=== PATIENT | female | born 1990 | race Caucasian/White ===

== ENCOUNTER 2016-03-30 14:12 | Emergency (ER) | payer OTHER ==
[2016-03-30 14:22] VITALS: TEMP 98.2; BMI 23.1
--- NOTE | 2016-03-30 15:28 | PDOC ---
Attending Attestation - Resident Resident Name: Reyes Clemente - ED Attending Attestation I have performed the following: I have examined & evaluated the patient, The case was reviewed & discussed with the resident, I agree w/resident's findings & plan - HPI HPI: 03/30/16 17:02 25y F presents with SOB/HERNÁNDEZ for several weeks associated with mild lightheadedness. Pt states it feels improved when she slows down and sits down or slows down when ambulating, no associated chets pain, hemoptysis, leg swelling, fever/chills, cough/congestion, wheezing, hx of divt/pe, smoking. Pts exam is unremarakble. Pt denies these sypmtoms with her prior even in late stages of . consideration for PE. pts labs reviewed no signs of anemia pt awaiting ekg and CTA 03/30/16 18:00 negative CTA for PE will dc the pt to fu with PMD return precautions were discussed - Physicial Exam PE: 03/31/16 09:49 see above - Medical Decision Making 03/31/16 09:49 see above
[2016-03-30] MEDS ORDERED: SODIUM CHLORIDE 1,000 ML IV STA (15:33)
--- NOTE | 2016-03-30 15:38 | PDOC ---
History of Present Illness - General Chief Complaint: Shortness of Breath Stated Complaint: 17 WKS , SOB, DIZZINESS Time Seen by Provider: 03/30/16 15:13 History Source: Patient Exam Limitations: No Limitations - History of Present Illness Initial Comments: 03/30/16 15:33 Patient is a 25 year old (1 miscarriage, 1 FT VD) female with PMH of bacterial colitis who presents to ED with SOB/dizziness. Patient states she is 19 weeks (according to Ultrasound dating 2 weeks ago by her OB) and has been having shortness of breath & subsequent lightheadedness after exertion for the last 4-5 days. It has been increasing in intensity and is only alleviated by sitting down & resting. She states that she feels a throbbing sensation in her lower abdomen during these episodes. She describes it as " feels like my baby's heart is racing". She reports constipation. Denies fever, chills, nausea, vomiting, diarrhea, vaginal spotting or chest pain. She has not been on a long trip recently. Denies any history of OCP use. Denies family history of clotting or spontaneous abortions. Past History - Travel Traveled outside of the country in the last 30 days: No Close contact w/someone who was outside of country & ill: No - Past Medical History Allergies/Adverse Reactions: Allergies Allergy/AdvReac Type Severity Reaction Status Date / Time No Known Allergies Allergy Verified 03/30/16 14:22 Home Medications: Ambulatory Orders Iron 0 mg PO ASDIR 11/04/13 Vit #108/Iron/FA [ One Tablet] 1 each PO ASDIR 11/04/13 Levofloxacin [Levaquin -] 500 mg PO DAILY #7 tablet 11/06/13 Metronidazole [Flagyl -] 500 mg PO TID #15 tablet 11/06/13 Asthma: No Cancer: No Cardiac Disorders: No Diabetes: No GI Disorders: Yes (bacterial colitis) HTN: No Suicide Attempt (Hx): No Seizures: No Thyroid Disease: No - Family Disease History Family Disease History: Diabetes: Mother - Reproductive History LMP comment: LMP 12/14 Is Patient Now?: Yes (#): 3 (1 MSICARRIAGE AT 16 WEEKS, 1 FULLT ERM VAGINAL DELIVERY) Para: 1 - Immunization History Immunization Up to Date: Yes - Psycho/Social/Smoking Cessation Hx Anxiety: No Suicidal Ideation: No Smoking Status: No Smoking History: Never smoked Have you smoked in the past 12 months: No Number of Cigarettes Smoked Daily: 0 Hx Alcohol Use: No Drug/Substance Use Hx: No Substance Use Type: None Hx Substance Use Treatment: No Review of Systems - Review of Systems Able to Perform ROS?: Yes Is the patient limited Sudanese proficient: No Constitutional: Yes: Diaphoresis. No: Chills, Fever, Night Sweats HEENTM: No: Blurred Vision, Nose Congestion, Throat Swelling, Difficulty Swallowing Respiratory: Yes: SOB with Exertion. No: Wheezing, Productive cough, Hemoptysis Cardiac (ROS): Yes: Lightheadedness. No: Chest Pain, Edema, Irregular Heart Rate, Syncope ABD/GI: Yes: Constipated. No: Diarrhea, Nausea, Vomiting, Tarry Stools : No: Burning, Dysuria Neurological: No: Headache, Numbness, Paresthesia, Tingling, Tremors All Other Systems: Reviewed and Negative *Physical Exam - Vital Signs Last Vital Signs Temp Pulse Resp BP Pulse Ox 98.2 F 95 H 16 118/68 99 03/30/16 14:18 03/30/16 14:18 03/30/16 14:18 03/30/16 14:18 03/30/16 14:18 - Physical Exam General Appearance: Yes: Nourished, Appropriately Dressed HEENT: positive: EOMI, CHRISTINA, Normal ENT Inspection, Pharynx Normal Neck: positive: Trachea midline, Normal Thyroid, Supple Respiratory/Chest: positive: Lungs Clear, Normal Breath Sounds Cardiovascular: positive: Regular Rhythm, S1, S2, Tachycardia Gastrointestinal/Abdominal: positive: Normal Bowel Sounds, Flat, Soft Musculoskeletal: positive: Normal Inspection Extremity: positive: Normal Inspection, Normal Range of Motion Integumentary: positive: Normal Color, Dry, Warm Neurologic: positive: card cutter helper II-XII NML intact, Fully Oriented, Alert, Normal Mood/ Affect, Motor Strength / ED Treatment Course - LABORATORY CBC & Chemistry Diagram: 03/30/16 15:48 03/30/16 15:48 - RADIOLOGY Radiology Studies Ordered: Category Date Time Status US(SINGLE) [US] Stat Ultrasound 03/30/16 15:27 Ordered Medical Decision Making - Medical Decision Making 03/30/16 15:39 Pelvic US ordered. Ordered EKG, CBC, CMP, UA. 1liter IVF ordered. 03/30/16 17:12 Need to rule out PE. Explained risks of radiation exposure to patients , and patient acknowledges understanding. She consents to CTA imaging. Discussed case with radiology. Plan is to proceed with CTA while ensuring lowest radiation exposure possible to patient. Ultrasound shows 17 weeks 6 days single live IUP. 03/30/16 19:01 CTA read as negative for PE or any other acute pathology. Patient instructed to followup with OBGYN immediately, ideally tomorrow. Instructed to return if symptoms worsen or new symptoms develop. *DC/Admit/Observation/Transfer Diagnosis at time of Disposition: Shortness of breath on exertion - Discharge Dispostion Disposition: HOME Condition at time of disposition: Stable Admit: No - Referrals Referrals: Kia Modi MD [Primary Care Provider] - - Patient Instructions Additional Instructions: Try to relax and not exert yourself too much over the next few days. Call your doctor LABOR TRAINER TOMORROW to schedule an appointment within 2 days for a checkup. If chest pain, shortness of breath or new problems start, return to emergency room IMMEDIATELY.
[2016-03-30 16:10] LABS: BASOPHIL 1.3 % (0-2.0); EOSINOPHIL 0.2 % (0-4.5); MCH 29.2 pg (25.7-33.7); MCHC 34.5 g/dl (32.0-36.0); MEAN CELL VOLUME 84.8 fl (80-96); MEAN PLT VOLUME 8.6 fl (7.5-11.1); NEUTROPHILS 70.6 % (42.8-82.8); PLATELET COUNT 210 K/MM3 (134-434); RDW 14.5 % (11.6-15.6); WHITE BLOOD COUNT 8.5 K/mm3 (4.0-10.0)
[2016-03-30 16:19] LABS: URINE APPEARANCE SLCLOUDY; URINE BILIRUBIN NEGATIVE (NEGATIVE); URINE BLOOD NEGATIVE (NEGATIVE); URINE COLOR YELLOW; URINE GLUCOSE (UA) NEGATIVE (NEGATIVE); URINE KETONE NEGATIVE (NEGATIVE); URINE NITRITE NEGATIVE (NEGATIVE); URINE PROTEIN NEGATIVE (NEGATIVE); URINE UROBILINOGEN NEGATIVE E.U./dl (0.2-1.0)
[2016-03-30 16:25] LABS: ALBUMIN 3.4 g/dl (3.4-5.0); ALK PHOS 59 U/L (45-117); ANION GAP 11 (8-16); BILIRUBIN,TOTAL 0.3 mg/dL (0.2-1.0); CALCIUM 9.1 mg/dL (8.5-10.1); CO2 22 mmol/L (21-32); CREATININE 0.5 mg/dL (0.55-1.02); GLUCOSE,RANDOM 91 mg/dL (74-106); SGOT/AST 16 U/L (15-37); SGPT/ALT 23 U/L (12-78); TOT PROT 7.2 g/dl (6.4-8.2)
[2016-03-30 16:28] LABS: URINE LEUK ESTERASE 1+ (NEGATIVE)
[2016-03-30 16:52] LABS: URINE MUCUS RARE; URINE RBC 5 /hpf (0-3); URINE WBC 3 /hpf (3-5); YEAST RARE
[2016-03-30 19:30] VITALS: BP 112/76; PULSE 86
--- NOTE | 2016-03-31 17:48 | EKG ---
Test Reason : Blood Pressure : / mmHG Vent. Rate : 081 BPM Atrial Rate : 081 BPM P-R Int : 132 ms QRS Dur : 080 ms QT Int : 360 ms P-R-T Axes : 053 053 035 degrees QTc Int : 418 ms NORMAL SINUS RHYTHM SEPTAL INFARCT , AGE UNDETERMINED ABNORMAL ECG WHEN COMPARED WITH ECG OF 11-DEC-2011 07:40, SEPTAL INFARCT IS NOW PRESENT Confirmed by LUKASZ PARNELL MD ([id number]) on 03/31/2016 5:47:48 PM Referred By: Confirmed By:LUKASZ PARNELL MD
== END 2016-03-30 19:27 | disposition home or self-care (01) ==
LOC: JER 14:12
PROC: 3E0337Z Introduction of Electrolytic and Water Balance Substance into Peripheral Vein, Percutaneous Approach (ICD-10-PCS; principal; 2016-03-30)
DX: O99.89 Other specified diseases and conditions complicating pregnancy, childbirth and the puerperium (principal); R06.02 Shortness of breath; Z3A.18 18 weeks gestation of pregnancy
CPT/HCPCS: 36415; 71275-TC; 76801-TC; 80053; 81003; 81015; 85025; 93005; 93010; 96360; 99284-25

== ENCOUNTER 2016-08-27 01:15 | Inpatient (IN) | payer OTHER ==
[2016-08-27] MEDS: DEXTROSE 5%-LACTATED RINGERS 1,000 ML IV SCH (01:40)
[2016-08-27] MEDS ORDERED: PROMETHAZINE HCL 25 MG/1 ML VIAL IVPB ONE ×2 (01:55→04:00)
[2016-08-27] MEDS ORDERED: BUTORPHANOL TARTRATE 1 MG/ML VIAL IVPB ONE (01:55)
[2016-08-27 02:03] LABS: BASOPHIL 0.7 % (0-2.0); EOSINOPHIL 0.4 % (0-4.5); MCH 29.3 pg (25.7-33.7); MCHC 34.6 g/dl (32.0-36.0); MEAN CELL VOLUME 84.7 fl (80-96); MEAN PLT VOLUME 9.2 fl (7.5-11.1); NEUTROPHILS 69.5 % (42.8-82.8); PLATELET COUNT 212 K/MM3 (134-434); RDW 13.4 % (11.6-15.6)
[2016-08-27 02:34] VITALS: BMI 25.2
[2016-08-27 02:38] LABS: INR 1.03 (0.82-1.09); PROTHROMBIN TIME (PATIENT) 11.3 SEC (9.98-11.88)
[2016-08-27 02:40] LABS: ACTIVATED PTT 33.3 SECONDS (26.9-34.4)
[2016-08-27 02:44] LABS: ANION GAP 12 (8-16); CALCIUM 8.9 mg/dL (8.5-10.1); CO2 21 mmol/L (21-32); CREATININE 0.6 mg/dL (0.55-1.02); GLUCOSE,RANDOM 123 mg/dL (74-106)
[2016-08-27] MEDS: D5W-LR W/ 20 UNITS OXYTOCIN 1,000 ML IV SCH (04:15)
[2016-08-27] MEDS ORDERED: BENZOCAINE 20% 57 GM BOTTLE TP PRN (04:32)
[2016-08-27] MEDS ORDERED: WITCH HAZEL 50% (TUCKS) 40 PAD/JAR PAD TP PRN (04:32)
[2016-08-27] MEDS ORDERED: BENZOCAINE 28 GM HEMORRHOIDAL OINTMENT TP PRN (04:32)
[2016-08-27] MEDS ORDERED: BISACODYL 10 MG SUPP.RECT RC PRN (04:32)
[2016-08-27] MEDS ORDERED: METHYLERGONOVINE MALEATE 0.2 MG/1 ML AMP IM PRN (04:32)
[2016-08-27] MEDS ORDERED: MEPERIDINE HCL CARPU-JECT 50 MG/1 ML DISP.SYRIN IM ONE (04:33)
--- NOTE | 2016-08-27 04:39 | HP ---
Past Medical History - Admission Chief Complaint: Labor pain History of Present Illness: 25 yo @ 39 weeks gestation, EDC 09/02/16, admitted for Labor pain. Upon admission she was 5 cm dilated with intact membrane. History Source: Patient Limitations to Obtaining History: No Limitations - Past Medical History ...: 3 ...Para: 1 ...Term: 1 ...Spon : 1 ...LMP: 12/18/15 ... Weeks Gestation by Dates: 36.1 ...EDC by Dates: 09/22/16 ...EDC by Sono: 09/03/16 - Past Surgical History Past Surgical History: Yes: None Hx Myomectomy: No Hx Transabdominal Cerclage: No - Smoking History Smoking history: Never smoked Have you smoked in the past 12 months: No Aproximately how many cigarettes per day: 0 - Alcohol/Substance Use Hx Alcohol Use: No History of Substance Use: reports: None - Social History Usual Living Arrangement: Yes: With Spouse History of Recent Travel: No Home Medications - Allergies Allergies/Adverse Reactions: Allergies Allergy/AdvReac Type Severity Reaction Status Date / Time No Known Allergies Allergy Verified 06/26/16 14:35 - Home Medications Home Medications: Ambulatory Orders Iron 0 mg PO WEEKLY 11/04/13 Vit #108/Iron/FA [ One Tablet] 1 each PO DAILY 11/04/13 Family Disease History - Family Disease History Family History: Unremarkable Review of Systems - Review of Systems Constitutional: reports: No Symptoms Eyes: reports: No Symptoms HENT: reports: No Symptoms Neck: reports: No Symptoms Cardiovascular: reports: No Symptoms Respiratory: reports: No Symptoms Gastrointestinal: reports: No Symptoms Genitourinary: reports: Pain Breasts: reports: No Symptoms Reported Musculoskeletal: reports: No Symptoms Integumentary: reports: No Symptoms Neurological: reports: No Symptoms Endocrine: reports: No Symptoms Hematology/Lymphatic: reports: No Symptoms Psychiatric: reports: No Symptoms Pain Intensity: 10 Physical Exam - Maternity Vital Signs: Vital Signs Temperature 98.2 F 08/27/16 03:00 Pulse Rate 74 08/27/16 03:00 Respiratory Rate 20 08/27/16 03:00 Blood Pressure 137/76 08/27/16 03:00 O2 Sat by Pulse Oximetry (%) Constitutional: Yes: Well Nourished Eyes: Yes: Conjunctiva Clear HENT: Yes: Atraumatic, Normocephalic Neck: Yes: Supple, Trachea Midline Cardiovascular: Yes: Regular Rate and Rhythm Lungs: Clear to auscultation - Abdominal Exam/OB Number of Fetuses: Single Presentation: Vertex Contractions: Yes Regularity: Regular Intensity: Mod/Strong - Vaginal Exam/OB Dilatation (cm): 5 Effacement (%): 90 Amniotic Membrane Status: Intact Station: -2 - Physical Exam Integumentary: Yes: WNL ...Motor Strength: WNL Psychiatric: Yes: Alert, Oriented - Labs Lab Results: CBC, BMP 08/27/16 01:55 08/27/16 01:55 Problem List - Problems (1) Pain during labor Code(s): O99.89 - OTH DISEASES AND CONDITIONS COMPL PREG/CHLDBRTH R52 - PAIN, UNSPECIFIED (2) Status post normal vaginal delivery Code(s): OSX1467 - Assessment/Plan Active labor Analgesia as needed Anticipate vaginal delivery
--- NOTE | 2016-08-27 04:45 | DS ---
Physical Exam-BENEFITS PROCESSOR Vital Signs: Vital Signs Temperature 98.2 F 08/27/16 03:00 Pulse Rate 74 08/27/16 03:00 Respiratory Rate 20 08/27/16 03:00 Blood Pressure 137/76 08/27/16 03:00 O2 Sat by Pulse Oximetry (%) Constitutional: Yes: Well Nourished Eyes: Yes: Conjunctiva Clear HENT: Yes: Atraumatic Neck: Yes: Supple Cardiovascular: Yes: Regular Rate and Rhythm Respiratory: Yes: Regular, CTA Bilaterally Gastrointestinal: Yes: Normal Bowel Sounds Cervix: Yes: Normal Uterus: Yes: Normal ....Post : Yes: Uterus firm, Moderate lochia serosa Breast(s): Yes: WNL Musculoskeletal: Yes: WNL Extremities: Yes: WNL Neurological: Yes: Alert, Oriented ...Motor Strength: WNL Psychiatric: Yes: Alert, Oriented Labs: CBC, BMP 08/27/16 01:55 08/27/16 01:55 Delivery - Delivery Vaginal Delivery: Spontaneous Type of Anesthesia: Local Episiotomy/Laceration: 1st degree EBL (cc): 250 Delivery, Single - Feeding Plan Initial Plan: Elected not to breastfeed exclusively throughout hospitalization Remarks - Remarks Remarks: Normal spontaneous vaginal delivery of a live girl over first degree laceration. Nose / Oropharynx suctioned @ perineum. Cord clamped and cut Retained placenta manually removed after Demerol injection. Laceration repaired with 2.0 Bosyn. Discharge Summary Reason For Visit: ADMIT-LABOR Current Active Problems Pain during labor (Acute) Status post normal vaginal delivery (Acute) Procedures: Principal: Normal spontaneous vaginal delivery Hospital Course: Routine care Condition: Good - Instructions Diet, Activity, Other Instructions: Regular diet No douching, no sexual intercourse x 6 weeks F/U in clinic in 6 weeks Disposition: HOME - Home Medications Comprehensive Discharge Medication List: Ambulatory Orders Iron 0 mg PO WEEKLY 11/04/13 Vit #108/Iron/FA [ One Tablet] 1 each PO DAILY 11/04/13
[2016-08-27] MEDS: FERROUS SO4 325 MG TABLET (FP) PO SCH ×3 (08:00→17:34)
[2016-08-27] MEDS: PRENATAL VITAMINS W/ FOLIC ACID TABLET (FP) PO SCH (10:16)
[2016-08-27] MEDS: ACETAMINOPHEN 325 MG TABLET (FP) PO PRN (18:54)
[2016-08-27] MEDS: IBUPROFEN 600 MG TABLET (FP) PO PRN (18:54)
[2016-08-28] MEDS: D5W-LR W/ 20 UNITS OXYTOCIN 1,000 ML IV SCH (05:15)
[2016-08-28] MEDS: DEXTROSE 5%-LACTATED RINGERS 1,000 ML IV SCH (05:15)
[2016-08-28] MEDS: IBUPROFEN 600 MG TABLET (FP) PO PRN ×2 (05:16→17:51)
[2016-08-28 07:09] LABS: BASOPHIL 1.1 % (0-2.0); MCH 29.6 pg (25.7-33.7); MCHC 34.4 g/dl (32.0-36.0); MEAN PLT VOLUME 8.5 fl (7.5-11.1); NEUTROPHILS 71.6 % (42.8-82.8); PLATELET COUNT 199 K/MM3 (134-434); WHITE BLOOD COUNT 9.8 K/mm3 (4.0-10.0)
[2016-08-28] MEDS: FERROUS SO4 325 MG TABLET (FP) PO SCH ×3 (08:50→17:49)
--- NOTE | 2016-08-28 09:43 | PN ---
Post Progress Note - Subjective Subjective: no complains Post Day: 1 Type of Delivery: Vital Signs: Vital Signs Temperature 98.0 F 08/28/16 02:00 Pulse Rate 72 08/28/16 02:00 Respiratory Rate 18 08/28/16 02:00 Blood Pressure 109/70 08/28/16 02:00 O2 Sat by Pulse Oximetry (%) 100 08/27/16 05:15 Breast Exam: Yes: Soft, Other (BF ). No: Engorged Uterus: Yes: Fundus Firm, Fundus below umbilicus, Non-tender Lochia: Yes: Rubra Lochia, amount: Moderate Extremities: Yes: Calves non-tender Perineum: Yes: Intact Activity: Ambulating - Labs Labs: CBC WBC 9.8 K/mm3 (4.0-10.0) 08/28/16 06:00 RBC 4.08 M/mm3 (3.60-5.2) 08/28/16 06:00 Hgb 12.1 GM/dL (10.7-15.3) 08/28/16 06:00 Hct 35.1 % (32.4-45.2) 08/28/16 06:00 MCV 86.0 fl (80-96) 08/28/16 06:00 MCHC 34.4 g/dl (32.0-36.0) 08/28/16 06:00 RDW 14.0 % (11.6-15.6) 08/28/16 06:00 Plt Count 199 K/MM3 (134-434) 08/28/16 06:00 MPV 8.5 fl (7.5-11.1) 08/28/16 06:00 Neutrophils % 71.6 % (42.8-82.8) 08/28/16 06:00 Lymphocytes % 22.2 % (8-40) 08/28/16 06:00 Monocytes % 4.1 % (3.8-10.2) 08/28/16 06:00 Eosinophils % 1.0 % (0-4.5) D 08/28/16 06:00 Basophils % 1.1 % (0-2.0) 08/28/16 06:00 Assessment/Plan stable plan discharge tomorrow.
[2016-08-28] MEDS ORDERED: DIPHTH,PERTUSS(ACELL),TET 0.5 ML DISP.SYRIN IM ONE (10:00)
[2016-08-28] MEDS: PRENATAL VITAMINS W/ FOLIC ACID TABLET (FP) PO SCH (10:00)
[2016-08-28] MEDS: ACETAMINOPHEN 325 MG TABLET (FP) PO PRN (17:52)
[2016-08-28] MEDS ORDERED: SENNOSIDES/DOCUSATE COMBO (SENNA PLUS) TABLET (UD) PO PRN (22:00)
[2016-08-29] MEDS: FERROUS SO4 325 MG TABLET (FP) PO SCH ×2 (08:11→11:43)
--- NOTE | 2016-08-29 08:12 | PN ---
Post Progress Note - Subjective Subjective: no complains Post Day: 2 Type of Delivery: Vital Signs: Vital Signs Temperature 98.0 F 08/28/16 22:00 Pulse Rate 81 08/28/16 22:00 Respiratory Rate 18 08/28/16 22:00 Blood Pressure 112/78 08/28/16 22:00 O2 Sat by Pulse Oximetry (%) 100 08/27/16 05:15 Breast Exam: Yes: Soft, Other (Bf ). No: Engorged Uterus: Yes: Fundus Firm, Fundus below umbilicus, Non-tender Lochia: Yes: Rubra Lochia, amount: Moderate Extremities: Yes: Calves non-tender Perineum: Yes: Intact Activity: Ambulating - Labs Labs: CBC WBC 9.8 K/mm3 (4.0-10.0) 08/28/16 06:00 RBC 4.08 M/mm3 (3.60-5.2) 08/28/16 06:00 Hgb 12.1 GM/dL (10.7-15.3) 08/28/16 06:00 Hct 35.1 % (32.4-45.2) 08/28/16 06:00 MCV 86.0 fl (80-96) 08/28/16 06:00 MCHC 34.4 g/dl (32.0-36.0) 08/28/16 06:00 RDW 14.0 % (11.6-15.6) 08/28/16 06:00 Plt Count 199 K/MM3 (134-434) 08/28/16 06:00 MPV 8.5 fl (7.5-11.1) 08/28/16 06:00 Neutrophils % 71.6 % (42.8-82.8) 08/28/16 06:00 Lymphocytes % 22.2 % (8-40) 08/28/16 06:00 Monocytes % 4.1 % (3.8-10.2) 08/28/16 06:00 Eosinophils % 1.0 % (0-4.5) D 08/28/16 06:00 Basophils % 1.1 % (0-2.0) 08/28/16 06:00 Assessment/Plan stable discharge today
[2016-08-29 08:50] VITALS: BP 139/72; PULSE 94; TEMP 98.6
[2016-08-29] MEDS: PRENATAL VITAMINS W/ FOLIC ACID TABLET (FP) PO SCH (10:18)
== END 2016-08-29 13:10 | disposition home or self-care (01) | DRG 560 ==
LOC: JLDR 01:15 → J3W 09:00
PROVIDERS: ADMIT Obstetrics & Gynecology; ATTEND Obstetrics & Gynecology
PROC: 10E0XZZ Delivery of Products of Conception, External Approach (ICD-10-PCS; principal; 2016-08-27)
PROC: 0HQ9XZZ Repair Perineum Skin, External Approach (ICD-10-PCS; 2016-08-27)
PROC: 0W8NXZZ Division of Female Perineum, External Approach (ICD-10-PCS; 2016-08-27)
DX: O70.0 First degree perineal laceration during delivery (principal); Z3A.39 39 weeks gestation of pregnancy; Z37.0 Single live birth
CPT/HCPCS: 36415; 59409; 80048; 85025; 85610; 85730; 86593; 86850; 86900; 86901; 90715

== ENCOUNTER 2017-06-09 16:53 | Emergency (ER) | payer OTHER ==
--- NOTE | 2017-06-09 17:07 | PDOC ---
Rapid Medical Evaluation Time Seen by Provider: 06/09/17 17:06 Medical Evaluation: Allergies Allergy/AdvReac Type Severity Reaction Status Date / Time No Known Allergies Allergy Verified 08/27/16 05:14 06/09/17 17:06 I have performed a brief in-person evaluation of this patient. The patient presents with a chief complaint of: headache/dizziness x 3 weeks, currently , has only taken tylenol Pertinent physical exam findings: well appearing I have ordered the following: urine preg The patient will proceed to the ED for further evaluation. Discharge Disposition - Diagnosis Headache - Referrals - Patient Instructions - Post Discharge Activity
[2017-06-09 17:09] VITALS: BP 114/68; PULSE 62; TEMP 97.8; BMI 19.0
[2017-06-09] MEDS ORDERED: SODIUM CHLORIDE 0.9% 500 ML INFUS.BAG IV ONE (17:45)
[2017-06-09] MEDS ORDERED: KETOROLAC TROMETHAMINE 30 MG/1 ML VIAL IVPUSH ONE (17:45)
[2017-06-09] MEDS ORDERED: METOCLOPRAMIDE HCL INJECTION 10 MG/2 ML VIAL IVPUSH ONE (17:45)
[2017-06-09] MEDS ORDERED: METOCLOPRAMIDE HCL INJECTION 10 MG/2 ML VIAL ONE (17:56)
[2017-06-09] MEDS ORDERED: KETOROLAC TROMETHAMINE 30 MG/1 ML VIAL ONE (17:57)
--- NOTE | 2017-06-09 18:03 | PDOC ---
History of Present Illness - General Chief Complaint: Headache Stated Complaint: HEADACHE Time Seen by Provider: 06/09/17 17:06 History Source: Patient Exam Limitations: No Limitations - History of Present Illness Initial Comments: 06/09/17 18:03 She came to emergency department with "I never had a headache this bad". States pain started 2-3 days ago, was acute in onset, has been intermittent and is associated with some dizziness and some flashing. Has never been diagnosed with migraines or other headache. Does not suffer from chronic headaches. No one at home is ill, she has not been ill with any URI symptoms does not suffer from seasonal ALLERGIES. Has taken only Tylenol for pain relief with minimal resolved. Severity: Yes: moderate, severe Associated Symptoms: reports: fatigue, ringing in ears, vision changes, weakness. denies: fever/chills, nausea/vomiting Past History - Travel Traveled outside of the country in the last 30 days: No Close contact w/someone who was outside of country & ill: No - Past Medical History Allergies/Adverse Reactions: Allergies Allergy/AdvReac Type Severity Reaction Status Date / Time No Known Allergies Allergy Verified 06/09/17 17:08 Home Medications: Ambulatory Orders NK [No Known Home Medication] 06/09/17 Asthma: No Cancer: No Cardiac Disorders: No COPD: No Diabetes: No GI Disorders: Yes (bacterial colitis) HTN: No Seizures: No Thyroid Disease: No - Family Disease History Family Disease History: Diabetes: Mother - Reproductive History (#): 3 (1 MSICARRIAGE AT 16 WEEKS, 1 FULLT ERM VAGINAL DELIVERY) Para: 1 - Immunization History Immunization Up to Date: Yes - Suicide/Smoking/Psychosocial Hx Smoking Status: No Smoking History: Never smoked Have you smoked in the past 12 months: No Number of Cigarettes Smoked Daily: 0 Information on smoking cessation initiated: No Hx Alcohol Use: No Drug/Substance Use Hx: No Substance Use Type: None Hx Substance Use Treatment: No Neuro Specific PMHX - Complaint Specific PMHX Migraine: No Review of Systems - Review of Systems Able to Perform ROS?: Yes Is the patient limited Egyptian proficient: Yes Constitutional: Yes: Symptoms Reported, See HPI, Malaise HEENTM: Yes: Symptoms Reported, See HPI, Eye Pain (mild photophobia). No: Nose Congestion Respiratory: Yes: See HPI. No: Symptoms reported, Cough Musculoskeletal: Yes: Symptoms Reported Integumentary: No: Symptoms Reported Neurological: Yes: Symptoms reported, See HPI, Headache. No: Numbness, Paresthesia Psychiatric: No: Anxiety All Other Systems: Reviewed and Negative *Physical Exam - Vital Signs Last Vital Signs Temp Pulse Resp BP Pulse Ox 97.8 F 62 16 114/68 100 06/09/17 17:06 06/09/17 17:06 06/09/17 17:06 06/09/17 17:06 06/09/17 17:06 - Physical Exam General Appearance: Yes: Nourished, Appropriately Dressed, Apparent Distress, Moderate Distress HEENT: positive: EOMI, CHRISTINA, Normal ENT Inspection, TMs Normal (miodl congestion ), Pharynx Normal. negative: Nasal Congestion, Rhinorrhea, Sinus Tenderness Neck: positive: Supple. negative: Tender, Lymphadenopathy (R), Lymphadenopathy (L) Respiratory/Chest: positive: Lungs Clear, Normal Breath Sounds Gastrointestinal/Abdominal: positive: Soft. negative: Tender Musculoskeletal: positive: Normal Inspection Extremity: positive: Normal Inspection, Normal Range of Motion Integumentary: positive: Normal Color, Dry, Warm, Pale Neurologic: positive: shingle trimmer II-XII NML intact, Fully Oriented, Alert, Normal Mood/ Affect, Normal Response, Motor Strength 5/5 Medical Decision Making - Medical Decision Making 06/09/17 18:41 500 mL of IV fluid, Reglan given with followed 30 mg of IV Toradol approximately 20 minutes later. Patient states is feeling much improved but has cont 6/10 pain to occiput. 06/09/17 18:43 06/09/17 19:47 CT to get for pathology, bleed or mass. Patient states feels much improved now pain 3-4/10 and is ready for discharge. Received 1 L of IV fluids, and states will use ibuprofen for pain relief. Given phone number for neurology consult if pain persists or recurs and understands plan. *DC/Admit/Observation/Transfer Diagnosis at time of Disposition: Headache Qualifiers: Headache type: unspecified Headache chronicity pattern: acute headache Intractability: not intractable Qualified Code(s): R51 - Headache - Discharge Dispostion Disposition: HOME Condition at time of disposition: Stable Admit: No - Referrals Referrals: Eduardo Gutierrez DO [Staff Physician] - - Patient Instructions Printed Discharge Instructions: DI for Headache Additional Instructions: Rest, drink lots of fluids, avoid sugar beverages or alcohol May use Ibuprofen for pain relief. Call and see PMD OR Neurologist when possible to evaluation of headache Return to emergency department for worsened pain, visual changes, nausea or neurologic changes, pain not resolved with ibuprofen - Post Discharge Activity
== END 2017-06-09 19:39 | disposition home or self-care (01) ==
LOC: JERFT 16:53
PROC: 3E033GC Introduction of Other Therapeutic Substance into Peripheral Vein, Percutaneous Approach (ICD-10-PCS; principal; 2017-06-09)
PROC: 3E0333Z Introduction of Anti-inflammatory into Peripheral Vein, Percutaneous Approach (ICD-10-PCS; 2017-06-09)
DX: R51 Headache (principal)
CPT/HCPCS: 70450-TC; 84703; 96374; 96375; 99281-25

== ENCOUNTER 2018-10-25 17:33 | Emergency (ER) | payer OTHER ==
[2018-10-25 17:38] VITALS: BP 129/75; PULSE 90; TEMP 98.3; BMI 19.7
--- NOTE | 2018-10-25 17:39 | PDOC ---
Rapid Medical Evaluation Time Seen by Provider: 10/25/18 17:36 Medical Evaluation: Allergies Allergy/AdvReac Type Severity Reaction Status Date / Time No Known Allergies Allergy Verified 06/09/17 17:08 10/25/18 17:36 I have performed a brief in-person evaluation of this patient. The patient presents with a chief complaint of: 7wk F w/ DIffuse lower abdominal pain and cramping since last night, no bleeding. LMP August 30. No NVD , no urinary symptoms. Has not had a documented IUP yet in this . [id number](miscarriage) I have ordered the following: UA, UCG, Ucx, CBC, CMP, Beta hcg, type n screen, transvaginal sono The patient will proceed to the ED for further evaluation. Discharge Disposition - Diagnosis Abdominal pain affecting - Referrals - Patient Instructions - Post Discharge Activity
[2018-10-25 18:20] LABS: BASO % 0.7 % (0-2.0); EOS % 0.7 % (0-4.5); HEMOGLOBIN 12.2 GM/dL (10.7-15.3); LYMPH % 16.7 % (8-40); MCH 29.2 pg (25.7-33.7); MEAN CELL VOLUME 85.8 fl (80-96); MEAN PLT VOLUME 8.7 fl (7.5-11.1); MONO % 3.8 % (3.8-10.2); NEUT % 78.1 % (42.8-82.8); PLATELET COUNT 245 K/MM3 (134-434); RBC 4.19 M/mm3 (3.60-5.2); RDW 13.8 % (11.6-15.6); WHITE BLOOD COUNT 9.2 K/mm3 (4.0-10.0)
[2018-10-25 18:27] LABS: URINE APPEARANCE CLEAR; URINE BILIRUBIN NEGATIVE (NEGATIVE); URINE COLOR YELLOW; URINE GLUCOSE (UA) NEGATIVE (NEGATIVE); URINE KETONE NEGATIVE (NEGATIVE); URINE LEUK ESTERASE NEGATIVE (NEGATIVE); URINE NITRITE NEGATIVE (NEGATIVE); URINE PROTEIN NEGATIVE (NEGATIVE); URINE UROBILINOGEN 0.2 mg/dL (0.2-1.0)
[2018-10-25 18:53] LABS: ALBUMIN 3.6 g/dl (3.4-5.0); BILIRUBIN,TOTAL 0.2 mg/dL (0.2-1); BLOOD UREA NITROGEN 13.3 mg/dL (7-18); CREATININE 0.7 mg/dL (0.55-1.3); POTASSIUM 3.5 mmol/L (3.5-5.1); TOT PROT 7.1 g/dl (6.4-8.2)
--- NOTE | 2018-10-25 19:55 | PDOC ---
*Physical Exam - Vital Signs Last Vital Signs Temp Pulse Resp BP Pulse Ox 98.3 F 90 16 129/75 98 10/25/18 17:36 10/25/18 17:36 10/25/18 17:36 10/25/18 17:36 10/25/18 17:36 ED Treatment Course - LABORATORY CBC & Chemistry Diagram: 10/25/18 18:00 10/25/18 18:00 - ADDITIONAL ORDERS Additional order review: Laboratory Results 10/25/18 10/25/18 10/25/18 18:00 18:00 18:00 Sodium Potassium Chloride Carbon Dioxide Anion Gap BUN Creatinine Est GFR (CKD-EPI)AfAm Est GFR (CKD-EPI)NonAf Random Glucose Calcium Total Bilirubin AST ALT Alkaline Phosphatase Total Protein Albumin Beta HCG, Quant Urine Color Yellow Urine Appearance Clear Urine pH 5.0 D Ur Specific [place] 1.037 H Urine Protein Negative Urine Glucose (UA) Negative Urine Ketones Negative Urine Blood Negative Urine Nitrite Negative Urine Bilirubin Negative Urine Urobilinogen 0.2 Ur Leukocyte Esterase Negative Urine HCG, Qual Positive Blood Type O POSITIVE Antibody Screen Negative 10/25/18 10/25/18 18:00 18:00 Sodium 138 Potassium 3.5 Chloride 107 Carbon Dioxide 24 Anion Gap 7 L BUN 13.3 Creatinine 0.7 Est GFR (CKD-EPI)AfAm 136.66 Est GFR (CKD-EPI)NonAf 117.91 Random Glucose 85 Calcium 9.0 Total Bilirubin 0.2 AST 17 ALT 24 Alkaline Phosphatase 51 Total Protein 7.1 Albumin 3.6 Beta HCG, Quant 407057.1 Cancelled Urine Color Urine Appearance Urine pH Ur Specific [place] Urine Protein Urine Glucose (UA) Urine Ketones Urine Blood Urine Nitrite Urine Bilirubin Urine Urobilinogen Ur Leukocyte Esterase Urine HCG, Qual Blood Type Antibody Screen 10/25/18 18:00 RBC 4.19 MCV 85.8 MCHC 34.0 RDW 13.8 MPV 8.7 Neutrophils % 78.1 Lymphocytes % 16.7 D Monocytes % 3.8 Eosinophils % 0.7 Basophils % 0.7 Medical Decision Making - Medical Decision Making 10/25/18 19:54 Patient seen by the advanced practice provider under my direct supervision. Ancillary testing reviewed as necessary. I agree with plan as outlined by the advanced practice provider. *DC/Admit/Observation/Transfer Diagnosis at time of Disposition: Abdominal pain affecting - Referrals Referrals: Kia Modi CNM [Primary Care Provider] - - Patient Instructions - Post Discharge Activity
[2018-10-25] MEDS ORDERED: ACETAMINOPHEN 325 MG TABLET (FP) PO ONE (20:11)
--- NOTE | 2018-10-25 20:30 | PDOC ---
History of Present Illness - General Chief Complaint: Pain, Acute Stated Complaint: ABD PAIN/7 WKS Time Seen by Provider: 10/25/18 17:36 History Source: Patient Exam Limitations: No Limitations Past History - Past Medical History Allergies/Adverse Reactions: Allergies Allergy/AdvReac Type Severity Reaction Status Date / Time No Known Allergies Allergy Verified 10/25/18 17:39 Home Medications: Ambulatory Orders NK [No Known Home Medication] 06/09/17 Asthma: No Cancer: No Cardiac Disorders: No COPD: No Diabetes: No GI Disorders: Yes (bacterial colitis) HTN: No Seizures: No Thyroid Disease: No - Family Disease History Family Disease History: Diabetes: Mother - Reproductive History (#): 3 (1 MSICARRIAGE AT 16 WEEKS, 1 FULLT ERM VAGINAL DELIVERY) Para: 1 - Immunization History Immunization Up to Date: Yes - Suicide/Smoking/Psychosocial Hx Smoking Status: No Smoking History: Never smoked Have you smoked in the past 12 months: No Number of Cigarettes Smoked Daily: 0 Hx Alcohol Use: No Drug/Substance Use Hx: No Substance Use Type: None Hx Substance Use Treatment: No *Physical Exam - Vital Signs Last Vital Signs Temp Pulse Resp BP Pulse Ox 98.3 F 90 16 129/75 98 10/25/18 17:36 10/25/18 17:36 10/25/18 17:36 10/25/18 17:36 10/25/18 17:36 - Physical Exam General Appearance: No: Apparent Distress Respiratory/Chest: positive: Lungs Clear, Normal Breath Sounds. negative: Respiratory Distress Cardiovascular: positive: Regular Rhythm, Regular Rate, S1, S2. negative: Murmur Gastrointestinal/Abdominal: positive: Normal Bowel Sounds, Soft. negative: Tender, Distended, Guarding, Rebound Integumentary: positive: Normal Color Neurologic: positive: Alert, Normal Mood/Affect ED Treatment Course - LABORATORY CBC & Chemistry Diagram: 10/25/18 18:00 10/25/18 18:00 - ADDITIONAL ORDERS Additional order review: Laboratory Results 10/25/18 10/25/18 10/25/18 18:00 18:00 18:00 Sodium Potassium Chloride Carbon Dioxide Anion Gap BUN Creatinine Est GFR (CKD-EPI)AfAm Est GFR (CKD-EPI)NonAf Random Glucose Calcium Total Bilirubin AST ALT Alkaline Phosphatase Total Protein Albumin Beta HCG, Quant Urine Color Yellow Urine Appearance Clear Urine pH 5.0 D Ur Specific [place] 1.037 H Urine Protein Negative Urine Glucose (UA) Negative Urine Ketones Negative Urine Blood Negative Urine Nitrite Negative Urine Bilirubin Negative Urine Urobilinogen 0.2 Ur Leukocyte Esterase Negative Urine HCG, Qual Positive Blood Type O POSITIVE Antibody Screen Negative 10/25/18 10/25/18 18:00 18:00 Sodium 138 Potassium 3.5 Chloride 107 Carbon Dioxide 24 Anion Gap 7 L BUN 13.3 Creatinine 0.7 Est GFR (CKD-EPI)AfAm 136.66 Est GFR (CKD-EPI)NonAf 117.91 Random Glucose 85 Calcium 9.0 Total Bilirubin 0.2 AST 17 ALT 24 Alkaline Phosphatase 51 Total Protein 7.1 Albumin 3.6 Beta HCG, Quant 574220.1 Cancelled Urine Color Urine Appearance Urine pH Ur Specific [place] Urine Protein Urine Glucose (UA) Urine Ketones Urine Blood Urine Nitrite Urine Bilirubin Urine Urobilinogen Ur Leukocyte Esterase Urine HCG, Qual Blood Type Antibody Screen 10/25/18 18:00 RBC 4.19 MCV 85.8 MCHC 34.0 RDW 13.8 MPV 8.7 Neutrophils % 78.1 Lymphocytes % 16.7 D Monocytes % 3.8 Eosinophils % 0.7 Basophils % 0.7 Medical Decision Making - Medical Decision Making 28 y/o F (hx 1 miscarriage), LNMP 7, currently 8 weeks , presents with lower abdominal cramping from yesterday along with 3 episodes of loose stool today (no blood in stool). Denies fever, sob, cp, vomiting, urinary complaints, vaginal bleeding. 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 Kia Modi, whom she saw for the first time last week for the first evaluation; has not had any imaging done yet. Labs unremarkable OB US shows IUP with heart tone noted Stable for dc 10/25/18 20:24 *DC/Admit/Observation/Transfer Diagnosis at time of Disposition: Abdominal pain affecting - Discharge Dispostion Disposition: HOME Condition at time of disposition: Stable Decision to Admit order: No - Referrals Referrals: Kia Modi CNM [Primary Care Provider] - 2 Days - Patient Instructions Additional Instructions: Thank you for choosing [facility]. It was a pleasure taking care of you. Your labs were unremarkable Your ultrasound shows evidence of in your uterus Continue follow-up with your [employer]I [employer]LE MACHINE OPERATOR Return to the Emergency Department if your symptoms worsen or persist, you have fever, shortness of breath, chest pain, severe abdominal pain, vomiting, vaginal bleeding or other concerning symptoms. - Post Discharge Activity
== END 2018-10-25 20:47 | disposition home or self-care (01) ==
LOC: JER 17:33
DX: O26.891 Other specified pregnancy related conditions, first trimester (principal); Z3A.01 Less than 8 weeks gestation of pregnancy; R10.9 Unspecified abdominal pain
CPT/HCPCS: 36415; 76801-TC; 80053; 81003; 84702; 84703; 85025; 86850; 86900; 86901; 87086; 87186; 99281-25

== ENCOUNTER 2018-11-16 08:51 | Emergency (ER) | payer OTHER ==
[2018-11-16 09:01] VITALS: BMI 22.4
[2018-11-16] MEDS ORDERED: METOCLOPRAMIDE HCL INJECTION 10 MG/2 ML VIAL IVPUSH ONE (09:24)
[2018-11-16] MEDS ORDERED: SODIUM CHLORIDE 0.9% 1000 ML INFUS.BAG IV ONE (09:24)
[2018-11-16] MEDS ORDERED: ACETAMINOPHEN 1000 MG/100 ML VIAL (NON FORMULARY) IVPB ONE (09:24)
[2018-11-16] MEDS ORDERED: ACETAMINOPHEN INJECTION 100 ML IVPB ONE (09:31)
[2018-11-16] MEDS ORDERED: METOCLOPRAMIDE HCL INJECTION 10 MG/2 ML VIAL ONE (09:31)
[2018-11-16 09:40] LABS: PH,URINE 8.5 (5.0-8.0); URINE APPEARANCE CLEAR; URINE BILIRUBIN NEGATIVE (NEGATIVE); URINE COLOR YELLOW; URINE GLUCOSE (UA) NEGATIVE (NEGATIVE); URINE KETONE NEGATIVE (NEGATIVE); URINE LEUK ESTERASE NEGATIVE (NEGATIVE); URINE NITRITE NEGATIVE (NEGATIVE); URINE PROTEIN NEGATIVE (NEGATIVE); URINE UROBILINOGEN 0.2 mg/dL (0.2-1.0)
[2018-11-16 09:56] LABS: BASO % 0.7 % (0-2.0); EOS % 0.4 % (0-4.5); HEMATOCRIT 34.6 % (32.4-45.2); HEMOGLOBIN 12.1 GM/dL (10.7-15.3); MCH 29.5 pg (25.7-33.7); MEAN CELL VOLUME 84.3 fl (80-96); MEAN PLT VOLUME 8.4 fl (7.5-11.1); MONO % 3.4 % (3.8-10.2); NEUT % 78.5 % (42.8-82.8); PLATELET COUNT 234 K/MM3 (134-434); RBC 4.11 M/mm3 (3.60-5.2); RDW 13.6 % (11.6-15.6); WHITE BLOOD COUNT 7.5 K/mm3 (4.0-10.0)
--- NOTE | 2018-11-16 09:59 | PDOC ---
Documentation entered by Liam Quintanilla SCRIBE, acting as scribe for Ruth Ayon MD. Ruth Ayon MD: This documentation has been prepared by the Dwight gavin Aiswarya, SCRIBE, under my direction and personally reviewed by me in its entirety. I confirm that the documentation accurately reflects all work, treatment, procedures, and medical decision making performed by me. History of Present Illness - General Chief Complaint: Headache Stated Complaint: 12WKS/ HEADACHES History Source: Patient Exam Limitations: No Limitations - History of Present Illness Initial Comments: 11/16/18 09:36 The patient is a 28 year old female , currently 12 weeks , with a significant PMH of bacterial colitis, who presents to the emergency department complaining of a headache that began 2 weeks ago. The patient states headache is located to the frontal area of the head and endorses associated symptoms of photophobia that progressively worsened today. She states she had an appointment with her PCP last week but was not able to go. Patient's last menstrual was August 30. The patient denies any falls, head trauma, numbness or tingling. Denies chest pain, shortness of breath, headache and dizziness. Denies fever, chills, nausea, vomit, diarrhea and constipation. Denies dysuria, frequency, urgency and hematuria. Allergies: NKDA Past surgical history: None reported Social history: None reported PCP: Kia Modi Past History - Past Medical History Allergies/Adverse Reactions: Allergies Allergy/AdvReac Type Severity Reaction Status Date / Time No Known Allergies Allergy Verified 11/16/18 08:58 Home Medications: Ambulatory Orders Mv-Mn/Iron/FA/Om3/Dha/Epa/Hb/D [ Daily Duo Combo Pack] 1 each PO DAILY 11/16/18 Asthma: No Cancer: No Cardiac Disorders: No COPD: No Diabetes: No GI Disorders: Yes (bacterial colitis) HTN: No Seizures: No Thyroid Disease: No - Reproductive History (#): 3 (1 MSICARRIAGE AT 16 WEEKS, 1 FULLT ERM VAGINAL DELIVERY) Para: 1 - Immunization History Immunization Up to Date: Yes - Psycho Social/Smoking Cessation Hx Smoking Status: No Smoking History: Never smoked Have you smoked in the past 12 months: No Number of Cigarettes Smoked Daily: 0 Information on smoking cessation initiated: No Hx Alcohol Use: No Drug/Substance Use Hx: No Substance Use Type: None Hx Substance Use Treatment: No Review of Systems - Review of Systems Able to Perform ROS?: Yes Comments:: 11/16/18 09:37 GENERAL/CONSTITUTIONAL: No fever or chills. No weakness. HEAD, EYES, EARS, NOSE AND THROAT: No change in vision. No ear pain or discharge. No sore throat. CARDIOVASCULAR: No chest pain or shortness of breath. RESPIRATORY: No cough, wheezing, or hemoptysis. GASTROINTESTINAL: No nausea, vomiting, diarrhea or constipation. GENITOURINARY: No dysuria, frequency, or change in urination. MUSCULOSKELETAL: No joint or muscle swelling or pain. No neck or back pain. SKIN: No rash NEUROLOGIC: +Headache. +Photophobia. No vertigo, loss of consciousness, or change in strength/sensation. ENDOCRINE: No increased thirst. No abnormal weight change. HEMATOLOGIC/LYMPHATIC: No anemia, easy bleeding, or history of blood clots. ALLERGIC/IMMUNOLOGIC: No hives or skin allergy. *Physical Exam - Vital Signs Last Vital Signs Temp Pulse Resp BP Pulse Ox 98.0 F 89 16 118/62 99 11/16/18 08:55 11/16/18 08:55 11/16/18 08:55 11/16/18 08:55 11/16/18 08:55 - Physical Exam Comments: 11/16/18 09:56 awake alert lungs clear bilat heart rrr no mrg abd soft nt nd ext wwp no edema. nuero CN II - XII intact alert oriented x 3 strength 5/5 all four ext. skin warm and dry. ED Treatment Course - LABORATORY CBC & Chemistry Diagram: 11/16/18 09:34 11/16/18 09:34 - ADDITIONAL ORDERS Additional order review: Laboratory Results 11/16/18 09:30 Urine Color Yellow Urine Appearance Clear Urine pH 8.5 H D Ur Specific [place] 1.020 Urine Protein Negative Urine Glucose (UA) Negative Urine Ketones Negative Urine Blood Negative Urine Nitrite Negative Urine Bilirubin Negative Urine Urobilinogen 0.2 Ur Leukocyte Esterase Negative - Medications Given in the ED: ED Medications Discontinued Medications Generic Name Dose Route Start Last Admin Trade Name Freq PRN Reason Stop Dose Admin Acetaminophen 1,000 mg 11/16/18 09:24 11/16/18 09:40 Ofirmev Injection - IVPB 11/16/18 09:25 1,000 mg ONCE ONE Administration Metoclopramide HCl 10 mg 11/16/18 09:24 11/16/18 09:41 Reglan Injection - IVPUSH 11/16/18 09:25 10 mg ONCE ONE Administration Sodium Chloride 1,000 ml 11/16/18 09:24 11/16/18 09:40 Normal Saline - IV 11/16/18 09:25 1,000 ml ONCE ONE Administration Medical Decision Making - Medical Decision Making Medical Decision Makin yo F currently 12 weeks pregant here for headache x 2 weeks. did not take anything for pain prior to arrival. worse today. had apt with pcp who cancelled on her so here in ED. no vag bleeding. no loss ob fluids. no new weakness numbness. no vision changes. headache frontal. throbbing, no head trauma. no f/ c normal nuero exam. frontal sinus tenderness. plan r/o anemia, electrolyte abnormality. hydration, reglan and tylenol. h/o recent uti will check ua r/o uti. focused ED us ob evaluate well being. focused ED us ob movement noted. FHR 156 bpm. small subchorionich hemorrhoage noted. impression: live IUP. 11:13 pt labs reviewed unremarkable. ua negative for UTI. plan reassess. poss dc home. 11:44 pt feeling much improved. has fu tomorro with her OB dc to home. Discharge - Discharge Information Problems reviewed: Yes Clinical Impression/Diagnosis: Headache, Condition: Improved Disposition: HOME - Admission No - Follow up/Referral Referrals: Kia Modi CNM [Primary Care Provider] - - Patient Discharge Instructions Patient Printed Discharge Instructions: Common Discomforts and Bodily Changes During Additional Instructions: you can take tylenol for your pain. take 500 mg every 6 hours as needed for headache. return for any problems or concerns. your labs and urine today are normal. 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 - Post Discharge Activity
[2018-11-16 10:15] LABS: ALBUMIN 3.6 g/dl (3.4-5.0); BILIRUBIN,TOTAL 0.3 mg/dL (0.2-1); BLOOD UREA NITROGEN 7.5 mg/dL (7-18); CALCIUM 8.7 mg/dL (8.5-10.1); CREATININE 0.6 mg/dL (0.55-1.3); POTASSIUM 3.8 mmol/L (3.5-5.1); TOT PROT 7.3 g/dl (6.4-8.2)
[2018-11-16 11:59] VITALS: BP 110/56; PULSE 71; TEMP 98.6
== END 2018-11-16 11:53 | disposition home or self-care (01) ==
LOC: JER 08:51
PROC: 3E033NZ Introduction of Analgesics, Hypnotics, Sedatives into Peripheral Vein, Percutaneous Approach (ICD-10-PCS; principal; 2018-11-16)
PROC: 3E033GC Introduction of Other Therapeutic Substance into Peripheral Vein, Percutaneous Approach (ICD-10-PCS; 2018-11-16)
DX: O99.89 Other specified diseases and conditions complicating pregnancy, childbirth and the puerperium (principal); R51 Headache; Z3A.12 12 weeks gestation of pregnancy
CPT/HCPCS: 36415; 76815; 80053; 81003; 85025; 87086; 99282-25; J0131; J7030